=== PATIENT | female | born 1965 | race African-American/Black ===

== ENCOUNTER 2017-02-20 01:35 | Emergency (ER) | payer MEDICAID ==
[~2017-02-20] VITALS: Ht 170.2 cm; Wt 9.0 kg
[2017-02-20 02:01] VITALS: BP 151/90
== END 2017-02-20 08:39 | disposition left against medical advice (07) ==
LOC: ER 01:35
DX: Z53.21 Procedure and treatment not carried out due to patient leaving prior to being seen by health care provider (principal)

== ENCOUNTER 2018-05-19 00:01 | Emergency (ER) | payer MEDICAID ==
[~2018-05-19] VITALS: Ht 170.2 cm; Wt 97.0 kg
[2018-05-19] MEDS ORDERED: ONDANSETRON 4MG ODT PO NR (04:15)
[2018-05-19] MEDS ORDERED: MORPHINE SULFATE 4 MG/ML CPJ (NOT FOR IM USE) IV NR (04:15)
[2018-05-19 04:55] LABS: BASOPHILS % 0.6 % (0.0-2.0); EOSINOPHILS % 0.1 % (0.0-5.0); HEMATOCRIT. 38.3 % (36.0-48.0); HEMOGLOBIN. 12.6 g/dL (12.0-16.0); LYMPHOCYTES % 28.9 % (20.0-50.0); MEAN CORPUSCULAR HEMOGLOBIN 28.5 pg (28.0-32.0); MEAN CORPUSCULAR VOLUME 86.7 fL (81.0-99.0); MEAN PLATELET VOLUME 10.4 fl (7.4-10.4); MONOCYTES % 7.9 % (2.0-8.0); NEUTROPHILS % 62.5 % (40.0-76.0); PLATELET 247 x1000/uL (130-400); RED BLOOD CELL COUNT 4.42 mill/uL (4.2-5.4); RED CELL DISTRIBUTION WIDTH 15.2 % (11.6-14.6)
[2018-05-19 05:00] LABS: PROTHROMBIN TIME 10.5 sec (9.1-11.1)
[2018-05-19 05:04] LABS: CHLORIDE 105 mEq/L (98-107)
[2018-05-19 07:10] VITALS: BP 115/73
== END 2018-05-19 07:25 | disposition short-term general hospital (02) ==
LOC: ER 00:01
DX: S02.81XA Fracture of other specified skull and facial bones, right side, initial encounter for closed fracture (principal); S02.2XXA Fracture of nasal bones, initial encounter for closed fracture; Y04.8XXA Assault by other bodily force, initial encounter; Y93.89 Activity, other specified; Y92.89 Other specified places as the place of occurrence of the external cause; Y99.8 Other external cause status
CPT/HCPCS: 36415; 70486; 80053; 85025; 85610; 86850; 86900; 86901; 96374; 99285; J2270; Q0162; Z7610

== ENCOUNTER 2020-05-03 07:26 | Emergency (ER) | payer SELFPAY ==
[~2020-05-03] VITALS: Ht 177.8 cm; Wt 97.5 kg
[2020-05-03] MEDS ORDERED: MORPHINE SULFATE 4 MG/ML CPJ (NOT FOR IM USE) IV ONE (08:15)
[2020-05-03 08:20] LABS: BASOPHILS % 0.6 % (0.0-2.0); EOSINOPHILS % 1.1 % (0.0-5.0); HEMATOCRIT. 38.8 % (36.0-48.0); HEMOGLOBIN. 12.7 g/dL (12.0-16.0); LYMPHOCYTES % 33.5 % (20.0-50.0); MEAN CORPUSCULAR HEMOGLOBIN 29.8 pg (28.0-32.0); MEAN CORPUSCULAR VOLUME 90.9 fL (81.0-99.0); MEAN PLATELET VOLUME 10.1 fl (7.4-10.4); MONOCYTES % 8.7 % (2.0-8.0); NEUTROPHILS % 56.1 % (40.0-76.0); PLATELET 223 x1000/uL (130-400); RED BLOOD CELL COUNT 4.27 mill/uL (4.2-5.4); RED CELL DISTRIBUTION WIDTH 15.3 % (11.6-14.6)
[2020-05-03 08:24] LABS: CHLORIDE 106 mEq/L (98-107)
[2020-05-03 10:00] VITALS: BP 182/91
== END 2020-05-03 11:30 | disposition left against medical advice (07) ==
LOC: ER 07:26
DX: R07.89 Other chest pain (principal); M25.511 Pain in right shoulder; M54.2 Cervicalgia; M79.601 Pain in right arm; J98.11 Atelectasis; M25.561 Pain in right knee; I10 Essential (primary) hypertension; E11.65 Type 2 diabetes mellitus with hyperglycemia; Z79.4 Long term (current) use of insulin; Z79.84 Long term (current) use of oral hypoglycemic drugs
CPT/HCPCS: 36415; 71045; 73030; 80053; 83880; 84484; 85025; 93005; 96374; 99285; J2270

== ENCOUNTER 2021-04-11 06:40 | Emergency (ER) | payer SELFPAY ==
[~2021-04-11] VITALS: Ht 170.2 cm; Wt 91.0 kg
[2021-04-11 07:56] LABS: BASOPHILS % 0.7 % (0.0-2.0); EOSINOPHILS % 0.3 % (0.0-5.0); HEMATOCRIT. 42.3 % (36.0-48.0); HEMOGLOBIN. 14.2 g/dL (12.0-16.0); LYMPHOCYTES % 28.5 % (20.0-50.0); MEAN CORPUSCULAR HEMOGLOBIN 29.9 pg (28.0-32.0); MEAN CORPUSCULAR VOLUME 89.1 fL (81.0-99.0); MEAN PLATELET VOLUME 10.8 fl (7.4-10.4); MONOCYTES % 7.8 % (2.0-8.0); NEUTROPHILS % 62.7 % (40.0-76.0); PLATELET 193 x1000/uL (130-400); RED BLOOD CELL COUNT 4.75 mill/uL (4.2-5.4); RED CELL DISTRIBUTION WIDTH 13.7 % (11.6-14.6)
[2021-04-11 08:02] LABS: CHLORIDE 103 mEq/L (98-107)
[2021-04-11] MEDS ORDERED: HYDR25TA PO (08:23)
[2021-04-11] MEDS ORDERED: HYDROCHLOROTHIAZIDE 25MG TABLET PO ONE (08:30)
[2021-04-11 09:42] VITALS: BP 150/90
[2021-04-16] MEDS ORDERED: LISI10TA26 PO ×3 (10:23→11:02)
[2021-04-16] MEDS ORDERED: CLOP75TA15 PO ×3 (10:23→11:02)
[2021-04-16] MEDS ORDERED: LIP40 PO ×3 (10:23→11:02)
[2021-04-16] MEDS ORDERED: AMLO10TA80 PO ×3 (10:23→11:02)
[2021-04-16] MEDS ORDERED: ASPI-1160 PO ×3 (10:23→11:02)
[2021-04-16] MEDS ORDERED: GLIP2.5T17 MT (11:02)
[2021-04-16] MEDS ORDERED: METF-907 MT (11:02)
== END 2021-04-11 09:45 | disposition home or self-care (01) ==
LOC: ER 08:17
DX: I10 Essential (primary) hypertension (principal); Z91.14 Patient's other noncompliance with medication regimen
CPT/HCPCS: 36415; 71045; 80053; 85025; 93005; 99285

== ENCOUNTER 2021-04-13 22:39 | Inpatient (IN) | payer SELFPAY ==
[~2021-04-13] VITALS: Ht 170.2 cm; Wt 89.8 kg
[~2021-04-13 22:39] MED LIST: HYDR25TA PO
[2021-04-14 01:12] LABS: BASOPHILS % 0.3 % (0.0-2.0); EOSINOPHILS % 0.4 % (0.0-5.0); HEMATOCRIT. 44.8 % (36.0-48.0); HEMOGLOBIN. 15.2 g/dL (12.0-16.0); MEAN CORPUSCULAR HEMOGLOBIN 30.1 pg (28.0-32.0); MEAN CORPUSCULAR VOLUME 88.7 fL (81.0-99.0); MEAN PLATELET VOLUME 11.2 fl (7.4-10.4); MONOCYTES % 11.7 % (2.0-8.0); NEUTROPHILS % 50.6 % (40.0-76.0); PLATELET 195 x1000/uL (130-400); RED BLOOD CELL COUNT 5.05 mill/uL (4.2-5.4)
[2021-04-14] MEDS ORDERED: ACETAMINOPHEN 325MG TABLET PO PRN (02:00)
[2021-04-14] MEDS ORDERED: ONDANSETRON HCL 4MG/2ML INJ IV PRN (02:00)
[2021-04-14] MEDS ORDERED: ASPIRIN 325MG EC TABLET PO ONE (05:00)
[2021-04-14 05:47] LABS: CLARITY URINE CLEAR (CLEAR); COLOR URINE YELLOW (YELLOW); KETONES URINE 1+ (NEGATIVE); LEUKOCYTE ESTERASE URINE NEGATIVE (NEGATIVE); NITRITE URINE NEGATIVE (NEGATIVE); OCCULT BLOOD URINE NEGATIVE (NEGATIVE); PROTEIN URINE NEGATIVE (NEGATIVE); SPECIFIC GRAVITY URINE 1.035 (1.005-1.030); UROBILINOGEN URINE 0.2 E.U./dL (0.2-1.0)
[2021-04-14 06:16] LABS: *AMPHETAMINES SCREEN URINE NEGATIVE (NEGATIVE); *BARBITURATES SCREEN URINE NEGATIVE (NEGATIVE); *BENZODIAZEPINES SCREEN URINE NEGATIVE (NEGATIVE); *COCAINE SCREEN URINE NEGATIVE (NEGATIVE); METHADONE URINE SCREEN NEGATIVE (NEGATIVE)
[2021-04-14 06:17] LABS: CANNABINOID URINE SCREEN NEGATIVE (NEGATIVE); OPIATES URINE SCREEN NEGATIVE (NEGATIVE); PHENCYCLIDINE URINE SCREEN NEGATIVE (NEGATIVE)
[2021-04-14] MEDS: INSULIN LISPRO 100 UNITS/ML SUBCUT SCH ×4 (07:00→20:20)
[2021-04-14 07:01] LABS: CHLORIDE 91 mEq/L (98-107)
[2021-04-14] MEDS ORDERED: DEXTROSE 50% WATER 50ML SYRINGE IV PRN (09:15)
[2021-04-14] MEDS: BLOOD SUGAR DIAGNOSTIC STRIP TEST SCH ×3 (11:18→20:19)
[2021-04-14] MEDS ORDERED: INSULIN LISPRO 100 UNITS/ML SUBCUT SCH (12:00)
[2021-04-14] MEDS: HYDROCHLOROTHIAZIDE 25MG TABLET PO SCH (14:03)
[2021-04-14 15:40] LABS: BASOPHILS % 0.9 % (0.0-2.0); EOSINOPHILS % 0.4 % (0.0-5.0); HEMATOCRIT. 41.8 % (36.0-48.0); HEMOGLOBIN. 14.1 g/dL (12.0-16.0); LYMPHOCYTES % 33.4 % (20.0-50.0); MEAN CORPUSCULAR HEMOGLOBIN 30.2 pg (28.0-32.0); MEAN CORPUSCULAR VOLUME 89.8 fL (81.0-99.0); MONOCYTES % 9.4 % (2.0-8.0); NEUTROPHILS % 55.9 % (40.0-76.0); PLATELET 214 x1000/uL (130-400); RED BLOOD CELL COUNT 4.66 mill/uL (4.2-5.4); RED CELL DISTRIBUTION WIDTH 13.8 % (11.6-14.6)
[2021-04-14 15:44] LABS: CHLORIDE 97 mEq/L (98-107)
[2021-04-14 15:50] LABS: PHOSPHORUS 3.1 mg/dL (2.5-4.9)
[2021-04-14 17:15] VITALS: BP 189/105
[2021-04-14] MEDS: HYDRALAZINE 20MG/ML VIAL IV PRN (17:49)
[2021-04-14 18:30] VITALS: BP 141/88
[2021-04-14 18:37] VITALS: BP 189/105
[2021-04-14 20:00] VITALS: BP 152/98
[2021-04-14] MEDS: ASPIRIN 81MG TABLET PO SCH (22:47)
[2021-04-15] VITALS: BP 116/70
[2021-04-15 04:00] VITALS: BP 138/93
[2021-04-15] MEDS: BLOOD SUGAR DIAGNOSTIC STRIP TEST SCH ×4 (05:51→21:07)
[2021-04-15] MEDS: INSULIN LISPRO 100 UNITS/ML SUBCUT SCH ×4 (06:10→20:52)
[2021-04-15 07:28] LABS: BASOPHILS % 0.3 % (0.0-2.0); EOSINOPHILS % 0.4 % (0.0-5.0); HEMATOCRIT. 40.3 % (36.0-48.0); HEMOGLOBIN. 13.6 g/dL (12.0-16.0); LYMPHOCYTES % 39.1 % (20.0-50.0); MEAN CORPUSCULAR HEMOGLOBIN 30.3 pg (28.0-32.0); MEAN CORPUSCULAR VOLUME 89.9 fL (81.0-99.0); MEAN PLATELET VOLUME 10.7 fl (7.4-10.4); MONOCYTES % 11.3 % (2.0-8.0); NEUTROPHILS % 48.9 % (40.0-76.0); PLATELET 197 x1000/uL (130-400); RED BLOOD CELL COUNT 4.49 mill/uL (4.2-5.4); RED CELL DISTRIBUTION WIDTH 13.8 % (11.6-14.6)
[2021-04-15 07:39] LABS: CHLORIDE 98 mEq/L (98-107)
[2021-04-15 07:51] LABS: PHOSPHORUS 3.7 mg/dL (2.5-4.9)
[2021-04-15 07:53] LABS: LDL CHOLESTEROL 175 mg/dL (5-100)
[2021-04-15 07:54] LABS: HDL CHOLESTEROL 44 mg/dL (40-59)
[2021-04-15 08:00] VITALS: BP 129/70
[2021-04-15] MEDS ORDERED: POTASSIUM CHLORIDE 20MEQ TABLET SR PO NR (08:15)
[2021-04-15] MEDS: HYDROCHLOROTHIAZIDE 25MG TABLET PO SCH (09:08)
[2021-04-15] MEDS: ASPIRIN 81MG TABLET PO SCH (09:08)
[2021-04-15] MEDS: ENOXAPARIN 40MG/0.4ML SYR SUBCUT SCH (09:09)
[2021-04-15 12:00] VITALS: BP 162/110
[2021-04-15 16:00] VITALS: BP 142/92
[2021-04-15] MEDS: HYDRALAZINE 20MG/ML VIAL IV PRN ×2 (17:09→20:49)
[2021-04-15] MEDS: CLOPIDOGREL 75MG TABLET PO SCH (18:55)
[2021-04-15 20:00] VITALS: BP 170/101
[2021-04-15] MEDS: ACETAMINOPHEN 325MG TABLET PO PRN (20:50)
[2021-04-15] MEDS ORDERED: ATORVASTATIN CALCIUM 40MG TABLET PO SCH (21:00)
[2021-04-16] VITALS (8 sets, daily range): BP systolic 122–151; BP diastolic 73–95
[2021-04-16] MEDS: ACETAMINOPHEN 325MG TABLET PO PRN (03:54)
[2021-04-16] MEDS: BLOOD SUGAR DIAGNOSTIC STRIP TEST SCH ×2 (06:07→11:50)
[2021-04-16] MEDS: INSULIN LISPRO 100 UNITS/ML SUBCUT SCH ×2 (06:07→11:58)
[2021-04-16] MEDS ORDERED: POTASSIUM CHLORIDE 20MEQ TABLET SR PO NR (08:15)
[2021-04-16] MEDS ORDERED: POLYVINYL ALCOHOL OPHTH DROPS 15ML BOTHEYE PRN (08:15)
[2021-04-16] MEDS: HYDROCHLOROTHIAZIDE 25MG TABLET PO SCH (08:35)
[2021-04-16] MEDS: ENOXAPARIN 40MG/0.4ML SYR SUBCUT SCH (08:36)
[2021-04-16] MEDS: ASPIRIN 81MG TABLET PO SCH (08:36)
[2021-04-16] MEDS: CLOPIDOGREL 75MG TABLET PO SCH (08:36)
[2021-04-16] MEDS ORDERED: LISINOPRIL 10MG TABLET PO SCH (10:15)
[2021-04-16] MEDS ORDERED: AMLODIPINE 10MG TABLET PO SCH (10:15)
[2021-04-16] MEDS ORDERED: ASPI-1160 PO ×3 (10:23→11:02)
[2021-04-16] MEDS ORDERED: LIP40 PO ×3 (10:23→11:02)
[2021-04-16] MEDS ORDERED: AMLO10TA80 PO ×3 (10:23→11:02)
[2021-04-16] MEDS ORDERED: CLOP75TA15 PO ×3 (10:23→11:02)
[2021-04-16] MEDS ORDERED: LISI10TA26 PO ×3 (10:23→11:02)
[2021-04-16] MEDS ORDERED: GLIP2.5T17 MT (11:02)
[2021-04-16] MEDS ORDERED: METF-907 MT (11:02)
[2021-04-16 11:30] LABS: CHLORIDE 94 mEq/L (98-107)
[2021-04-17] MEDS ORDERED: LISINOPRIL 10MG TABLET PO SCH (09:00)
== END 2021-04-16 13:45 | disposition home or self-care (01) | DRG 45 ==
LOC: ER 22:39 → MICUSO 04-14 01:10 → EDBEDREQ 04-14 01:16 → EDBEDREQTM 04-14 01:16 → 8WST 04-14 15:19
PROVIDERS: ADMIT Internal Medicine; ATTEND Internal Medicine
DX: I63.9 Cerebral infarction, unspecified (principal); G93.40 Encephalopathy, unspecified; H43.392 Other vitreous opacities, left eye; E11.319 Type 2 diabetes mellitus with unspecified diabetic retinopathy without macular edema; Z20.822 Contact with and (suspected) exposure to COVID-19; E11.65 Type 2 diabetes mellitus with hyperglycemia; R51.9 Headache, unspecified; E78.5 Hyperlipidemia, unspecified; I10 Essential (primary) hypertension; I69.30 Unspecified sequelae of cerebral infarction
CPT/HCPCS: 36415; 70551; 71045; 80048; 80053; 80061; 80305; 81003; 82962; 83036; 83735; 83880; 84100; 84484; 85025; 87426; 93005; 93306; 93880; 97162; 99285; J0360; J1650; J1815

== ENCOUNTER 2021-04-17 10:03 | Inpatient (IN) | payer SELFPAY ==
[~2021-04-17] VITALS: Ht 170.2 cm; Wt 91.1 kg
[~2021-04-17 10:03] MED LIST changes: +AMLO10TA80 PO; +ASPI-1160 PO; +CLOP75TA15 PO; +GLIP2.5T17 MT; -HYDR25TA PO; +LIP40 PO; +LISI10TA26 PO; +METF-907 MT
[2021-04-17] MEDS ORDERED: DEXTROSE 50% WATER 50ML SYRINGE IV ONE (11:15)
[2021-04-17] MEDS ORDERED: MORPHINE SULFATE 4 MG/ML CPJ (NOT FOR IM USE) IV ONE ×2 (11:15→13:45)
[2021-04-17 12:17] LABS: BASOPHILS % 0.3 % (0.0-2.0); EOSINOPHILS % 0.3 % (0.0-5.0); HEMATOCRIT. 41.5 % (36.0-48.0); HEMOGLOBIN. 13.8 g/dL (12.0-16.0); LYMPHOCYTES % 26.4 % (20.0-50.0); MEAN CORPUSCULAR HEMOGLOBIN 30.1 pg (28.0-32.0); MEAN CORPUSCULAR VOLUME 90.2 fL (81.0-99.0); MEAN PLATELET VOLUME 11.1 fl (7.4-10.4); MONOCYTES % 9.9 % (2.0-8.0); NEUTROPHILS % 63.1 % (40.0-76.0); PLATELET 200 x1000/uL (130-400); RED CELL DISTRIBUTION WIDTH 14.6 % (11.6-14.6)
[2021-04-17 12:25] LABS: PROTHROMBIN TIME 11.1 sec (9.6-11.0)
[2021-04-17 13:34] LABS: CHLORIDE 95 mEq/L (98-107)
[2021-04-17 13:39] LABS: ETHANOL BLOOD < 10 mg/dL
[2021-04-17] MEDS ORDERED: ACETAMINOPHEN 325MG TABLET PO ONE (13:45)
[2021-04-17] MEDS ORDERED: METOCLOPRAMIDE HCL 10MG/2ML VIAL IV ONE (13:45)
[2021-04-17 15:46] LABS: CLARITY URINE CLOUDY (CLEAR); COLOR URINE YELLOW (YELLOW); KETONES URINE TRACE (NEGATIVE); LEUKOCYTE ESTERASE URINE TRACE (NEGATIVE); NITRITE URINE NEGATIVE (NEGATIVE); OCCULT BLOOD URINE NEGATIVE (NEGATIVE); PROTEIN URINE 1+ (NEGATIVE); SPECIFIC GRAVITY URINE 1.018 (1.005-1.030)
[2021-04-17 16:14] LABS: METHADONE URINE SCREEN NEGATIVE (NEGATIVE)
[2021-04-17 16:15] LABS: *AMPHETAMINES SCREEN URINE NEGATIVE (NEGATIVE); *BARBITURATES SCREEN URINE NEGATIVE (NEGATIVE); *BENZODIAZEPINES SCREEN URINE NEGATIVE (NEGATIVE); *COCAINE SCREEN URINE NEGATIVE (NEGATIVE); CANNABINOID URINE SCREEN NEGATIVE (NEGATIVE); OPIATES URINE SCREEN NEGATIVE (NEGATIVE); PHENCYCLIDINE URINE SCREEN NEGATIVE (NEGATIVE)
[2021-04-17] MEDS ORDERED: ASPIRIN 81MG TABLET PO ONE (16:15)
[2021-04-17] MEDS ORDERED: ONDANSETRON HCL 4MG/2ML INJ IV PRN (22:00)
[2021-04-17] MEDS ORDERED: CLONIDINE 0.1MG TABLET PO PRN (22:00)
[2021-04-17] MEDS ORDERED: ACETAMINOPHEN 325MG TABLET PO PRN (22:00)
[2021-04-17] MEDS ORDERED: SODIUM CHLORIDE 0.45% 1,000 ML IV SCH (22:15)
[2021-04-18 09:02] LABS: CHLORIDE 96 mEq/L (98-107)
[2021-04-18 09:04] LABS: BASOPHILS % 0.6 % (0.0-2.0); EOSINOPHILS % 0.2 % (0.0-5.0); HEMATOCRIT. 42.2 % (36.0-48.0); HEMOGLOBIN. 14.4 g/dL (12.0-16.0); LYMPHOCYTES % 28.8 % (20.0-50.0); MEAN CORPUSCULAR HEMOGLOBIN 30.5 pg (28.0-32.0); MEAN CORPUSCULAR VOLUME 89.1 fL (81.0-99.0); MEAN PLATELET VOLUME 10.6 fl (7.4-10.4); MONOCYTES % 8.2 % (2.0-8.0); NEUTROPHILS % 62.2 % (40.0-76.0); PLATELET 222 x1000/uL (130-400); RED BLOOD CELL COUNT 4.74 mill/uL (4.2-5.4)
[2021-04-18 10:20] VITALS: BP 131/79
[2021-04-18 12:00] VITALS: BP 155/87
[2021-04-18] MEDS ORDERED: NITROFURANTOIN 100MG M/M CAPSULE PO SCH (12:30)
[2021-04-18] MEDS ORDERED: NITR-87 PO (14:10)
[2021-04-18 14:12] VITALS: BP 155/87
== END 2021-04-18 15:00 | disposition home or self-care (01) | DRG 420 ==
LOC: ER 10:03 → MICUSO 16:08 → 6WST 04-18 07:39
PROVIDERS: ADMIT Hospitalist; ATTEND Hospitalist
DX: E11.649 Type 2 diabetes mellitus with hypoglycemia without coma (principal); N17.9 Acute kidney failure, unspecified; I10 Essential (primary) hypertension; N39.0 Urinary tract infection, site not specified; E87.1 Hypo-osmolality and hyponatremia; Z86.73 Personal history of transient ischemic attack (TIA), and cerebral infarction without residual deficits; Z79.82 Long term (current) use of aspirin; Z79.899 Other long term (current) drug therapy; Z82.49 Family history of ischemic heart disease and other diseases of the circulatory system
CPT/HCPCS: 36415; 71045; 80053; 80305; 80307; 80320; 81003; 82962; 83036; 85025; 93005; 99291; J2270; J2765; G0480

== ENCOUNTER 2025-04-30 21:22 | Emergency (ER) | payer OTHER ==
[~2025-04-30] VITALS: Ht 170.2 cm; Wt 86.0 kg
[~2025-04-30 21:22] MED LIST changes: +NITR-87 PO
[2025-04-30 21:30] VITALS: O2SAT 99
[2025-04-30 22:19] LABS: CLARITY URINE CLEAR (CLEAR); COLOR URINE YELLOW (YELLOW); GLUCOSE URINE 3+ (NEGATIVE); KETONES URINE NEGATIVE (NEGATIVE); LEUKOCYTE ESTERASE URINE NEGATIVE (NEGATIVE); NITRITE URINE NEGATIVE (NEGATIVE); OCCULT BLOOD URINE NEGATIVE (NEGATIVE); PH URINE 5.5 (4.5-8.0); PROTEIN URINE NEGATIVE (NEGATIVE); SPECIFIC GRAVITY URINE 1.027 (1.005-1.030); UROBILINOGEN URINE 0.2 E.U./dL (0.2-1.0)
[2025-04-30 22:37] LABS: BACTERIA URINE NONE SEEN; RBC URINE NONE SEEN /hpf (0-2); SQUAMOUS EPITHELIAL CELL URINE RARE /lpf (RARE/1+); WBC URINE NONE SEEN /hpf (0-2)
[2025-04-30 23:31] LABS: BASOPHILS % 0.8 % (0.0-2.0); EOSINOPHILS % 0.9 % (0.0-5.0); HEMATOCRIT. 36.0 % (36.0-48.0); HEMOGLOBIN. 11.6 g/dL (12.0-16.0); LYMPHOCYTES % 37.1 % (20.0-50.0); MEAN PLATELET VOLUME 10.9 fl (7.4-10.4); MONOCYTES % 7.3 % (2.0-8.0); NEUTROPHILS % 53.9 % (40.0-76.0); PLATELET 171 x1000/uL (130-400); RED BLOOD CELL COUNT 4.09 mill/uL (4.2-5.4); RED CELL DISTRIBUTION WIDTH 14.4 % (11.6-14.6)
[2025-04-30 23:45] LABS: CREATININE 1.1 mg/dL (0.6-1.0); UREA NITROGEN BLOOD 17 mg/dL (9-23)
[2025-04-30 23:47] LABS: ASPARTATE AMINOTRANSFERASE 15 IU/L (<34); BILIRUBIN DIRECT 0.1 mg/dL (<=3.0); BILIRUBIN TOTAL 0.4 mg/dL (0.1-1.0); PROTEIN TOTAL 6.9 g/dL (6.0-8.3)
[2025-05-01 00:56] VITALS: BP 175/84; PULSE 69; RESP 18; TEMP 36.6; O2SAT 100
== END 2025-05-01 00:56 | disposition home or self-care (01) ==
LOC: ER 21:22
DX: R60.0 Localized edema (principal); E11.65 Type 2 diabetes mellitus with hyperglycemia; I10 Essential (primary) hypertension; R06.02 Shortness of breath; Z79.899 Other long term (current) drug therapy; Z86.73 Personal history of transient ischemic attack (TIA), and cerebral infarction without residual deficits
CPT/HCPCS: 36415; 80048; 80076; 81003; 81025; 83880; 85025; 93005; 93970; 99284